=== PATIENT | female | born 1985 | race Caucasian/White ===

== ENCOUNTER 2020-08-28 16:36 | Outpatient (REF) | payer OTHER, SELFPAY | END 2020-08-28 16:37 | disposition home or self-care (01) | LOC: HO.LNP 16:36 | PROVIDERS: Visit Provider Internal Medicine | DX: Z20.828 Contact with and (suspected) exposure to other viral communicable diseases (principal); R68.89 Other general symptoms and signs | CPT/HCPCS: U0003 ==

== ENCOUNTER 2021-10-29 15:14 | Outpatient (REF) | payer OTHER, SELFPAY ==
[2021-10-29 15:59] LABS: COVID-19 Test Negative (Negative); IDNOW Serial# 9DD0AD1C
== END 2021-10-29 15:15 | disposition home or self-care (01) ==
LOC: HO.LNP 15:14
PROVIDERS: Visit Provider Internal Medicine
DX: R09.89 Other specified symptoms and signs involving the circulatory and respiratory systems (principal); Z20.822 Contact with and (suspected) exposure to COVID-19
CPT/HCPCS: 87635

== ENCOUNTER 2022-09-30 16:01 | Outpatient (REF) | payer OTHER, SELFPAY ==
[2022-09-30 16:44] LABS: Influenza A PCR NEGATIVE (Negative); Influenza B PCR NEGATIVE (Negative); Resp Syncy Virus RNA Qual PCR NEGATIVE (Negative); SARS COV2 PCR INHOUSE NEGATIVE (Negative)
== END 2022-09-30 16:02 | disposition home or self-care (01) ==
LOC: HO.LNP 16:01
PROVIDERS: Visit Provider Internal Medicine
DX: Z20.822 Contact with and (suspected) exposure to COVID-19 (principal); R53.83 Other fatigue
CPT/HCPCS: 0241U

== ENCOUNTER 2023-01-09 10:56 | Outpatient (REF) | payer OTHER, SELFPAY ==
[2023-01-09 13:21] LABS: MANUAL DIFF FLAG NO
[2023-01-09 13:30] LABS: Basophils Percent Auto 0.5 % (0-2); Eosinophils Absolute Auto 0.1 X10*3/uL (0.0-0.4); Eosinophils Percent Auto 1.5 % (0-4); Hematocrit 43.6 % (37.0-47.0); Hemoglobin 14.3 g/dl (12.0-16.0); Imm Gran Abs Auto 0.02 X10*3/uL (0.00-0.03); Imm Gran Pct Auto 0.3 % (0.0-0.4); Lymphocytes Absolute Auto 1.8 X10*3/uL (1.2-4.9); Mean Corpuscular HGB Conc 32.8 g/dl (31.0-35.0); Mean Corpuscular Hemoglobin 30.7 pg (27.0-33.0); Mean Corpuscular Volume 93.6 fL (80.0-98.0); Mean Platelet Volume 9.7 fL (9.4-12.3); Monocytes Absolute Auto 0.4 X10*3/uL (0.1-1.2); Monocytes Percent Auto 5.6 % (2-11); Neutrophils Absolute Auto 5.5 x10*3/uL (2.0-8.3); Neutrophils Percent Auto 69.1 % (45-73); Platelet Count 368 X10*3/uL (160-400); Red Blood Count 4.66 X10*6/uL (4.20-5.50); Red Cell Distribution Width 12.6 % (11.0-16.0); White Blood Count 7.9 X10*3/uL (4.8-10.8)
[2023-01-09 14:15] LABS: Alanine Aminotransferase 15 U/L (0-31); Albumin Level 4.2 g/dL (3.5-5.0); Alkaline Phosphatase 58 U/L (39-117); Anion Gap 13 (12-20); Aspartate Amino Transferase 15 U/L (5-31); Bilirubin Total 0.3 mg/dL (0.0-1.0); Blood Urea Nitrogen 10 mg/dL (9-16); C Reactive Protein < 0.10 mg/dL (< or = 0.50); Calcium 9.2 mg/dL (8.4-10.2); Carbon Dioxide 24 mmol/L (22-29); Chloride 107 mmol/L (96-108); Estimated Glomerular Filt Rate > 60; Glucose Random 95 mg/dL (60-115); Potassium 4.6 mmol/L (3.3-5.1); Sodium 139 mmol/L (135-145); Total Protein 6.8 g/dL (6.5-8.0)
[2023-01-09 14:40] LABS: Thyroid Stimulating Hormone 1.22 uIU/mL (0.32-4.0); Vitamin B12 387 pg/mL (200-900)
== END 2023-01-09 10:57 | disposition home or self-care (01) ==
LOC: HO.10HDL 10:56
PROVIDERS: Visit Provider Internal Medicine
DX: R10.9 Unspecified abdominal pain (principal); R11.2 Nausea with vomiting, unspecified; R19.7 Diarrhea, unspecified; R53.83 Other fatigue
CPT/HCPCS: 36415; 80053; 82607; 84443; 85025; 86140

== ENCOUNTER 2023-01-22 08:24 | Outpatient (REF) | payer OTHER, SELFPAY ==
--- NOTE | ~2023-01-22 | US_ITS ---
EXAMINATION: US ABDOMEN COMPLETE CLINICAL INFORMATION: Abdominal pain. COMPARISON: None available. TECHNIQUE: Real-time imaging of the abdominal viscera. FINDINGS: PANCREAS: Normal. ABDOMINAL AORTA: The proximal, mid, and distal segments are normal in caliber. INFERIOR VENA CAVA: Visualized portions are normal. LIVER: Normal. The liver is normal in size. The liver contour is normal. Parenchymal echogenicity is normal. No focal hepatic lesion. There is no intrahepatic biliary duct dilatation seen. GALLBLADDER: The gallbladder is physiologically distended. There is echogenic mobile gravel visualized. No evidence of gallbladder wall thickening or pericholecystic fluid. Gallbladder wall thickness measures 0.17 cm. COMMON BILE DUCT: Normal in caliber measuring 0.4 cm in diameter. RIGHT KIDNEY: Normal. No hydronephrosis. No renal calculi or focal parenchymal lesions. The kidney measures 11.0 cm in maximum dimension. LEFT KIDNEY: There is an anechoic cyst midpole measuring 1.3 x 1.3 x 1.4 cm. There is mild pelvic caliectasis. No hydronephrosis or renal calculi. The kidney measures 10.1 cm in maximum dimension. SPLEEN: Normal. The spleen measures 9.6 cm in maximum dimension. FREE FLUID: None. US/US abdomen complete IMPRESSION: 1. There is an anechoic cyst midpole left kidney measuring 1.4 cm. 2. There is mild pelvic caliectasis left kidney. 3. Echogenic mobile gravel in the dependent portion of the gallbladder. No wall thickening.
== END 2023-01-22 08:25 | disposition home or self-care (01) ==
LOC: HO.HMGCX 08:24
PROVIDERS: PCP Internal Medicine; Visit Provider Internal Medicine
DX: R10.9 Unspecified abdominal pain (principal)
CPT/HCPCS: 76700

== ENCOUNTER → 2023-02-07 08:52 | Outpatient (BNVA) | payer OTHER, SELFPAY | PROVIDERS: PCP Internal Medicine; Referring Provider Internal Medicine; Visit Provider Surgery | DX: Z13.89 Encounter for screening for other disorder (principal) ==

== ENCOUNTER → 2023-02-21 13:13 | Outpatient (BNVA) | payer OTHER, SELFPAY | PROVIDERS: PCP Internal Medicine; Visit Provider Surgery ==

== ENCOUNTER 2023-03-20 06:00 | Day surgery (SDC) | payer OTHER, SELFPAY ==
--- NOTE | 2023-03-19 12:39 | HO.ANESPROP2 ---
Documented by User: Sylvia Augustine NP 03/19/23 12:40 HPI - Anesthesia Eval Consult details Narrative: 37yo F for Cholecystectomy Laparoscopic, Poss open PMFSH Active Problems Active Problems: All Active Problems (Updated 02/07/23 @ 09:44 by Waqar Longo MD) Cholelithiasis (Acute) Biliary colic (Acute) Cigarette smoker motivated to quit (Acute) Past Medical History Medical History Smoker Surgical History Surgical History (Updated 03/14/23 @ 11:20 by Nadia Palumbo RN) No pertinent past surgical history Social History Social History Alcohol intake: current Patient Tobacco Use Status: Former Tobacco user Quit Date: 03/03/23 Cigarettes Per Day: 5 Years Smoked: 15 Use of substances other than those prescribed or required for medical reasons: Yes Are you DNR?: No Advance Directives: No Advance Directives Information Provided: Yes Meds Allergies Allergy/AdvReac Type Severity Reaction Status Date / Time sulfamethoxazole Allergy hives Verified 02/21/23 13:16 Active Medications: Current Medications Lactated Ringer's (Lr) 1,000 mls @ 100 mls/hr IVCONT .Q10H [facility] Home Medications Medication Instructions Recorded Confirmed Last Taken Type bupropion HCl 150 mg tablet,12 hr 150 mg PO DAILY 02/07/23 03/13/23 Unknown History sustained-release (Wellbutrin SR) cholecalciferol (vitamin D3) 125 125 mcg PO DAILY 02/07/23 03/13/23 Unknown History mcg (5,000 unit) capsule lorazepam 0.5 mg tablet 0.5 mg PO DAILY PRN as directed 02/07/23 03/13/23 03/20/23 History varenicline 1 mg tablet 1 mg PO BID 03/13/23 03/13/23 Unknown History Exam Exam Date and Time: March 19, 2023 1239 Pertinent Lab Results Pertinent Lab Results: Laboratory Tests 01/09/23 01/09/23 11:02 11:02 WBC 7.9 Hgb 14.3 Hct 43.6 Plt Count 368 Sodium 139 Potassium 4.6 Chloride 107 Carbon Dioxide 24 BUN 10 Creatinine 0.70 Assessment and Plan Assessment Anesthesia Assessment: Chart Reviewed Documented by User: Jaja Cartwright MD 03/20/23 08:29 [facility] Past Medical History Medical History Smoker Family History Family history of problems with anesthesia: No Surgical History Surgical History (Updated 03/14/23 @ 11:20 by Nadia Palumbo RN) No pertinent past surgical history History of Problems with Anesthesia: No Social History Social History Alcohol intake: current Patient Tobacco Use Status: Former Tobacco user Quit Date: 03/03/23 Cigarettes Per Day: 5 Years Smoked: 15 Use of substances other than those prescribed or required for medical reasons: Yes Are you DNR?: No Advance Directives: No Advance Directives Information Provided: Yes Meds Allergies Allergy/AdvReac Type Severity Reaction Status Date / Time sulfamethoxazole Allergy hives Verified 02/21/23 13:16 Home Medications Medication Instructions Recorded Confirmed Last Taken Type bupropion HCl 150 mg tablet,12 hr 150 mg PO DAILY 02/07/23 03/13/23 Unknown History sustained-release (Wellbutrin SR) cholecalciferol (vitamin D3) 125 125 mcg PO DAILY 02/07/23 03/13/23 Unknown History mcg (5,000 unit) capsule lorazepam 0.5 mg tablet 0.5 mg PO DAILY PRN as directed 02/07/23 03/13/23 03/20/23 History varenicline 1 mg tablet 1 mg PO BID 03/13/23 03/13/23 Unknown History Exam Airway Mallampati Class: I TM Dist: >3cm Neck ROM: Full Loose/Missing/Broken Teeth: No Heart: rr Lungs: cta Assessment and Plan Assessment Anesthesia Assessment: Anesthesia Plan Discussed and Smoking Cess. Discussed Final Anesthetic Review Family History of Problems with Anesthesia: No History of Problems with Anesthesia: No NPO: Yes ASA Class: II Final Preanesthetic Review: No Changes in Pt Med Stat, Meds/Allgs Chart Reviewed, Consent Obtained/Reviewed and Anes Risks/Benef Reviewed Patient Risk: Low Procedure Risk: Intermediate Anesthetic Plan Anesthetic Plan: GA Disposition: Standard PACU
--- NOTE | 2023-03-19 14:18 | MHC.SHP ---
Pre-Procedural Eval Section A Date of Service: 03/19/23 The patient is an INPATIENT: No The History & Physical has been completed within 30 days and I have reviewed it.: Yes Section B Chief Complaint: Calculus of bile duct,Calculus of gallbladder Allergies: Allergies Allergy/AdvReac Type Severity Reaction Status Date / Time sulfamethoxazole Allergy hives Verified 02/21/23 13:16 Plan I have reviewed the history and physical and performed a pertinent physical examination on my patient. No changes have occurred unless specified. Time Spent With Patient Time: Total time managing care of this patient today ____ minutes.
[2023-03-20] VITALS (9 sets, daily range): BP systolic 120–142; BP diastolic 70–86; PULSE 55–86; RESP 12–20; TEMP 36.5–36.7; O2SAT 97–100; BMI 28.3
[2023-03-20 06:24] LABS: UPreg QC Valid YES; Urine Pregnancy NEGATIVE (NEGATIVE)
[2023-03-20] MEDS: Lactated Ringers 1,000 ML 100 ML IVCONT (06:37)
--- NOTE | 2023-03-20 07:02 | P.OP_ITS ---
Operative Note Operative Note Date of Service: 03/20/23 Narrative: Preop diagnosis: [Biliary colic, CCC] Postop diagnosis: [Same] Procedure: [Laparoscopic cholecystectomy] Surgeon: Waqar Longo MD Assist: [Abbi Gonzales RN] Anesthesia: [GET, Marcaine, 0.5% with epi] Estimated blood loss: [3cc] Specimen: [Gallbladder with contents] Intraoperative findings: [4-5 mm cystic duct; 2-3 mm cystic artery. Critical view of safety demonstrated. Incidentally, the patient's fascia is rather attenuated.] Indications: [The patient is a 37-year-old woman who is been experiencing typical symptoms of biliary colic and ultrasound confirmed cholelithiasis. Options including continued dietary attempts to avoid biliary colic was discussed with the patient as well as the option of a 2nd opinion but the patient had progression of her symptoms in spite of dietary changes, so I recomm ended laparoscopic cholecystectomy and the patient wanted to proceed. The inherent risks of the procedure include, but are not limited to: Bleeding that could require another operation or blood transfusion, the need for open surgery, the unlikely but possible issue of bile leak that could require an ERCP, the risk of retained common duct stones that could require an ERCP, the risk of common bile duct injury which would require transfer to a larger institution for another operation. Activity restrictions and dietary modifications to prevent diarrhea were also reviewed and apparently understood. Patient seemed to understand her options, declined a double needle operator or 2nd opinion and wants to proceed. Procedure: The patient was identified in preoperative holding and again in the operating room and placed supine on the table. An appropriate time-out was performed and preemptive local used at all trocar insertion sites. I began at the patient's supraumbilical midline and placed a Veress needle through a stab incision. An appropriate drop test was performed. The needle was connected to high flow and opening pressures were 5 mmHg. A pneumoperitoneum of 15 mmHg was then obtained using carbon dioxide and I accessed the patient's abdomen through the right side of the abdomen in the anterior axillary line at the level of the umbilicus using a 5 mm Optiview trocar and 30 degree/5 mm laparoscopic without incident. Next a a 5 mm epigastric and 5 mm right subcostal port were placed with preemptive analgesia under direct laparoscopic vision and limited lysis of adhesions adding about 5 minutes to the case was performed to dissect omentum from the umbilical area to allow placement of a 12 mm trocar. The gallbladder was clearly identified and grasped by its fundus. It was retracted cranially and anteriorly and dissection began in the cystic triangle. The cystic duct was identified at its junction on the gallbladder and dissection began laterally, then circumferentially dissected using the [place] dissector and hook. The cystic artery was then carefully identified and circumferentially dissected. Once dissection of both structures was complete and the critical view of safety demonstrated, the duct and artery were double clipped proximally and once distally and sharply divided. Electrocautery was used to remove the gallbladder from its fossa on the liver. Liver bed was inspected for hemostasis and the clips were noted to be on the respective structures. The gallbladder was placed in an Endo-Catch bag and delivered through the umbilicus under direct laparoscopic vision. The abdomen was again inspected with the laparoscoped and a abdomen deflated to assess for hemostasis. The patient was returned to neutral position, the abdomen deflated and the fascia of the supraumbilical incision closed with interrupted Vicryl sutures. Skin was closed with 4-0 Monocryl subcuticular sutures. Mastisol and Steri-Strips were applied followed by Band-Aids. The patient tolerated the procedure well and was extubated recovered in stable condition. All sponge instrument counts were correct. At the patient's request I called her Onofre at [phone] and apprised him of the operation and postop plan, pain management and bowel regime. His questions seemed to be satisfactorily answered.]
[2023-03-20] MEDS: oxyCODONE HCl Immed Release 5 MG TABLET PO (09:26)
[2023-03-20] MEDS: fentaNYL citrate/PF 100 MCG/2 ML VIAL 50 MCG IVPUSH (09:50)
== END 2023-03-20 10:42 | disposition home or self-care (01) ==
LOC: HO.SSS 06:00
PROVIDERS: Nurse Practitioner; PCP Internal Medicine; Visit Provider Surgery
PROC: 0FT44ZZ Resection of Gallbladder, Percutaneous Endoscopic Approach (ICD-10-PCS; CPT 47562; principal; 2023-03-20 07:30)
DX: K80.10 Calculus of gallbladder with chronic cholecystitis without obstruction (principal); K82.8 Other specified diseases of gallbladder; K80.50 Calculus of bile duct without cholangitis or cholecystitis without obstruction; Z79.899 Other long term (current) drug therapy; Z88.2 Allergy status to sulfonamides; F17.210 Nicotine dependence, cigarettes, uncomplicated
CPT/HCPCS: 47562; 81025; 88304; J0690; J2250; J3010

== ENCOUNTER → 2023-03-28 10:14 | Outpatient (BNVA) | payer OTHER, SELFPAY | PROVIDERS: PCP Internal Medicine; Visit Provider Surgery ==

== ENCOUNTER 2023-08-14 11:16 | Outpatient (REF) | payer OTHER, SELFPAY ==
[2023-08-14 13:13] LABS: MANUAL DIFF FLAG NO
[2023-08-14 13:15] LABS: Basophils Absolute Auto 0.1 X10*3/uL (0.0-0.2); Basophils Percent Auto 0.7 % (0-2); Eosinophils Absolute Auto 0.1 X10*3/uL (0.0-0.4); Eosinophils Percent Auto 0.8 % (0-4); Hematocrit 43.1 % (37.0-47.0); Hemoglobin 14.5 g/dl (12.0-16.0); Imm Gran Abs Auto 0.03 X10*3/uL (0.00-0.03); Imm Gran Pct Auto 0.3 % (0.0-0.4); Lymphocytes Absolute Auto 2.6 X10*3/uL (1.2-4.9); Mean Corpuscular HGB Conc 33.6 g/dl (31.0-35.0); Mean Corpuscular Hemoglobin 31.6 pg (27.0-33.0); Mean Corpuscular Volume 93.9 fL (80.0-98.0); Mean Platelet Volume 9.3 fL (9.4-12.3); Monocytes Absolute Auto 0.7 X10*3/uL (0.1-1.2); Monocytes Percent Auto 5.6 % (2-11); Neutrophils Absolute Auto 8.4 x10*3/uL (2.0-8.3); Neutrophils Percent Auto 70.6 % (45-73); Platelet Count 400 X10*3/uL (160-400); Red Blood Count 4.59 X10*6/uL (4.20-5.50); Red Cell Distribution Width 12.5 % (11.0-16.0)
[2023-08-14 13:30] LABS: Alanine Aminotransferase 14 U/L (0-31); Albumin Level 4.7 g/dL (3.5-5.0); Alkaline Phosphatase 56 U/L (39-117); Anion Gap 13 (12-20); Aspartate Amino Transferase 15 U/L (5-31); Bilirubin Total 0.4 mg/dL (0.0-1.0); Blood Urea Nitrogen 8 mg/dL (9-16); C Reactive Protein < 0.10 mg/dL (< or = 0.50); Calcium 9.6 mg/dL (8.4-10.2); Carbon Dioxide 23 mmol/L (22-29); Chloride 105 mmol/L (96-108); Estimated Glomerular Filt Rate > 60; Glucose Random 96 mg/dL (60-115); Lipase 19 U/L (8-78); Potassium 4.1 mmol/L (3.3-5.1); Sodium 137 mmol/L (135-145); Total Protein 7.7 g/dL (6.5-8.0)
== END 2023-08-14 11:17 | disposition home or self-care (01) ==
LOC: HO.10HDL 11:16
PROVIDERS: Visit Provider Internal Medicine
DX: R10.9 Unspecified abdominal pain (principal); Z98.890 Other specified postprocedural states
CPT/HCPCS: 36415; 80053; 82550; 83690; 85025; 86140

== ENCOUNTER 2023-08-18 10:18 | Outpatient (REF) | payer OTHER, SELFPAY ==
--- NOTE | ~2023-08-18 | CT_ITS ---
EXAMINATION: CT ABDOMEN AND PELVIS WITHOUT CONTRAST CLINICAL INFORMATION: Abdominal pain COMPARISON: Ultrasound abdomen from 01/22/2023 TECHNIQUE: Multidetector volumetric imaging was performed from the superior aspect of the liver through the pubic symphysis. Sagittal and coronal reformatted images were obtained on the technologist's workstation. This CT examination was performed using dose optimization techniques as appropriate, variously including the following: *Automated exposure control *Adjustment of mA and/or kV according to patient size (this includes techniques or standardized protocols for targeted exams where dose is matched to indication/reason for exam; i.e. extremities or head) *Use of iterative reconstruction technique DLP: 419 mGy-cm FINDINGS: LUNG BASES: The visualized lung bases are unremarkable. LIVER, GALLBLADDER, AND BILIARY TREE: The liver is normal in size, shape, and attenuation. No focal hepatic lesion or biliary ductal dilatation is present. The gallbladder is surgically absent. PANCREAS: Unremarkable. SPLEEN: Unremarkable. ADRENAL GLANDS: Unremarkable. KIDNEYS AND URETERS: Redemonstration of exophytic cystic focus in the left renal interpolar region measuring up to 1.2 cm, not requiring follow-up. The kidneys are normal in size, shape, and attenuation. No hydronephrosis, hydroureter, or calculi seen. No perinephric stranding. BLADDER: Unremarkable. GASTROINTESTINAL TRACT: The small and large bowel are unremarkable. The appendix is unremarkable. ABDOMINAL WALL: Fat filled umbilical hernia. LYMPH NODES: Normal. VASCULAR: Unremarkable. PELVIC VISCERA: Anteverted uterus. Bilateral adnexal/ovarian hypodense foci the largest in the left side measuring up to 2.0 cm. Findings are overwhelmingly likely to represent a normal ovarian follicle. No follow-up imaging recommended. OSSEOUS STRUCTURES: Unremarkable. CT/CT abdomen pelvis wo IV con IMPRESSION: 1. No acute pathology involving the abdomen or pelvis. 2. Bilateral adnexal/ovarian hypodense foci the largest in the left side measuring up to 2.0 cm. Findings are overwhelmingly likely to represent a normal ovarian follicle. No follow-up imaging recommended. 3. Status post cholecystectomy. 4. Redemonstration of exophytic cystic focus in the left renal interpolar region measuring up to 1.2 cm, not requiring follow-up. 5. Fat filled umbilical hernia.
== END 2023-08-18 10:19 | disposition home or self-care (01) ==
LOC: HO.CT 10:18
PROVIDERS: PCP Internal Medicine; Visit Provider Internal Medicine
DX: R10.84 Generalized abdominal pain (principal)
CPT/HCPCS: 74176

== ENCOUNTER 2023-09-09 08:27 | Outpatient (AMB) | payer OTHER, SELFPAY ==
--- NOTE | 2023-09-09 08:29 | A.OFFVIS_ITS ---
Intake Vital Signs 09/09/23 08:33 Height 5 ft 4 in Weight 153 lb 0.013 oz BMI 26.3 BP 138/71 Blood Pressure Location Rt brachial Position Sitting Pulse 96 Pulse Source Pulse Oximeter Temp 95.7 F L Temp Source Tympanic Pulse Oximetry (%) 99 Oxygen Delivery Method Room Air Intake Visit Reasons: ABD HERNIA Allergies sulfamethoxazole Allergy (Verified 03/28/23 10:31) hives HPI HPI Comments History of Present Illness Details The pt is known to me for laparoscopic cholecystectomy for biliary colic 03/20/23. She was last seen 03/28/2023 and was doing well. In the interim, the patient notes that she has had continued mid upper abdominal/left-sided abdominal complaints since surgery. She contacted her PCP who ordered a CT of the abdomen and pelvis and a tiny umbilical hernia containing fat, no bowel was noted. She otherwise denies interval change to her medications. The patient notes that she is stopped Wellbutrin, is continuing to smoke and that she is exhausted and wiped out. FORMERLY [facility], [facility] Medical History Smoker Surgical History History of laparoscopic cholecystectomy (03/20/23) Social History Alcohol intake: current Patient Tobacco Use Status: Former Tobacco user Quit Date: 03/03/23 Cigarettes Per Day: 5 Years Smoked: 15 Physical Exam On exam, patient is nontoxic She is anicteric Abdomen is soft. She reports left paramedian/ventral pain. There is no obvious umbilical hernia on exam and to palpation today, there was no umbilical tenderness, but rather left rectus pain above the level of the umbilicus. Her lap cholecystectomy scars are well healed with no tenderness and no obvious hernia. Results Reviewed Results Reviewed: 2. Bilateral adnexal/ovarian hypodense foci the largest in the left side measuring up to 2.0 cm. Findings are overwhelmingly likely to represent a normal ovarian follicle. No follow-up imaging recommended. I reviewed the images and report and concur that there is a bland, tiny umbilical hernia containing fat with no stigmata of inflammation to explain the patient's ongoing symptoms Assessment & Plan Assessment & Plan (1) Umbilical hernia: Code(s): K42.9 - Umbilical hernia without obstruction or gangrene Plan: The patient is describing global exhaustion and symptoms not typically related to hernia. On today's exam, her pain is not at her umbilicus but in the left rectus/ventral area. Explained to her that we may need to consider repair if no other etiology for her chronic abdominal and exhaustion/fatigue complaints are found, but I am skeptical she will benefit from repair. (2) Abdominal pain: Code(s): R10.9 - Unspecified abdominal pain Plan: Patient may benefit from evaluation from electronics technology instructor regarding the ovarian cysts seen on CT. Plan Will see the patient back in 3 months for re-evaluation. Patient will contact her PCP for referrals regarding electronics technology instructor or possible GI to exclude other possibilities given this tiny umbilical hernia that was not tender on today's exam. Coding Level of Care Code Est Pt Level 4 (85870) Diagnoses Umbilical hernia K42.9 Abdominal pain R10.9
[2023-09-09 08:33] VITALS: BP 138/71; PULSE 96; TEMP 35.4; O2SAT 99; BMI 26.3
== END 2023-09-09 08:44 | disposition home or self-care (01) ==
PROVIDERS: PCP Internal Medicine; Visit Provider Surgery
DX: K42.9 Umbilical hernia without obstruction or gangrene (principal); R10.9 Unspecified abdominal pain
CPT/HCPCS: 99214

== ENCOUNTER → 2023-09-09 08:27 | Outpatient (BNVA) | payer OTHER, SELFPAY | PROVIDERS: PCP Internal Medicine; Visit Provider Surgery ==

== ENCOUNTER 2023-09-26 13:50 | Outpatient (REF) | payer OTHER, SELFPAY ==
[2023-09-26 14:41] LABS: Influenza A PCR NEGATIVE (Negative); Influenza B PCR NEGATIVE (Negative); Resp Syncy Virus RNA Qual PCR NEGATIVE (Negative); SARS COV2 PCR INHOUSE NEGATIVE (Negative)
== END 2023-09-26 13:51 | disposition home or self-care (01) ==
LOC: HO.LNP 13:50
PROVIDERS: Visit Provider Internal Medicine
DX: Z11.52 Encounter for screening for COVID-19 (principal); Z20.822 Contact with and (suspected) exposure to COVID-19; R05.9 Cough, unspecified; R51.9 Headache, unspecified
CPT/HCPCS: 0241U

== ENCOUNTER 2023-11-05 10:00 | Outpatient (REF) | payer OTHER, SELFPAY ==
[2023-11-05 10:55] LABS: Influenza A PCR POSITIVE (Negative); Influenza B PCR NEGATIVE (Negative); Resp Syncy Virus RNA Qual PCR NEGATIVE (Negative); SARS COV2 PCR INHOUSE NEGATIVE (Negative)
== END 2023-11-05 10:01 | disposition home or self-care (01) ==
LOC: HO.LNP 10:00
PROVIDERS: Visit Provider Internal Medicine
DX: Z11.52 Encounter for screening for COVID-19 (principal); Z20.822 Contact with and (suspected) exposure to COVID-19; R05.9 Cough, unspecified; R51.9 Headache, unspecified
CPT/HCPCS: 0241U

== ENCOUNTER 2023-11-27 09:36 | Outpatient (REF) | payer OTHER, SELFPAY ==
[2023-11-27 09:59] LABS: MANUAL DIFF FLAG NO
[2023-11-27 10:46] LABS: Basophils Absolute Auto 0.1 X10*3/uL (0.0-0.2); Basophils Percent Auto 0.6 % (0-2); Eosinophils Absolute Auto 0.1 X10*3/uL (0.0-0.4); Eosinophils Percent Auto 1.3 % (0-4); Hemoglobin 15.2 g/dl (12.0-16.0); Imm Gran Abs Auto 0.04 X10*3/uL (0.00-0.03); Imm Gran Pct Auto 0.5 % (0.0-0.4); Lymphocytes Absolute Auto 1.9 X10*3/uL (1.2-4.9); Mean Corpuscular HGB Conc 33.8 g/dl (31.0-35.0); Mean Corpuscular Hemoglobin 31.1 pg (27.0-33.0); Mean Platelet Volume 9.6 fL (9.4-12.3); Monocytes Absolute Auto 0.5 X10*3/uL (0.1-1.2); Monocytes Percent Auto 6.2 % (2-11); Neutrophils Absolute Auto 5.6 x10*3/uL (2.0-8.3); Neutrophils Percent Auto 68.4 % (45-73); Platelet Count 354 X10*3/uL (160-400); Red Blood Count 4.89 X10*6/uL (4.20-5.50); Red Cell Distribution Width 13.1 % (11.0-16.0); White Blood Count 8.2 X10*3/uL (4.8-10.8)
[2023-11-27 10:55] LABS: Appearance Urine Cloudy; Color Urine Dark Yellow; Glucose Urine UA Negative (Negative); Leukocyte Esterase Urine Trace (Negative); Nitrite Urine Negative (Negative); Specific Gravity - Urine 1.025 (1.005-1.025); UMIC TRIGGER UACC YES; Urine Blood Moderate (2+) (Negative); Urine Ketones Trace mg/dL (Negative); Urine Protein Trace mg/dL (Neg-Trace)
[2023-11-27 11:08] LABS: Bacteria Urine 3+ (None Seen); WBC Urine 0-5 /HPF (0-5)
[2023-11-27 11:30] LABS: Alanine Aminotransferase 12 U/L (0-31); Albumin Level 4.5 g/dL (3.5-5.0); Alkaline Phosphatase 63 U/L (39-117); Anion Gap 14 (12-20); Aspartate Amino Transferase 14 U/L (5-31); Bilirubin Total 0.7 mg/dL (0.0-1.0); Blood Urea Nitrogen 8 mg/dL (9-16); C Reactive Protein < 0.10 mg/dL (< or = 0.50); Calcium 9.6 mg/dL (8.4-10.2); Carbon Dioxide 22 mmol/L (22-29); Chloride 105 mmol/L (96-108); Estimated Glomerular Filt Rate > 60; Glucose Random 94 mg/dL (60-115); Lipase 15 U/L (8-78); Potassium 3.5 mmol/L (3.3-5.1); Sodium 137 mmol/L (135-145); Total Protein 7.6 g/dL (6.5-8.0)
[2023-11-27 11:35] LABS: Free T4 (Free Thyroxine) 1.09 ng/dL (0.71-1.85); Thyroid Stimulating Hormone 0.97 uIU/mL (0.32-4.0)
[2023-11-27 11:39] LABS: Vitamin B12 436 pg/mL (200-900)
== END 2023-11-27 09:37 | disposition home or self-care (01) ==
LOC: HO.LAB 09:36
PROVIDERS: PCP Internal Medicine; Visit Provider Internal Medicine
DX: R10.9 Unspecified abdominal pain (principal); Z98.890 Other specified postprocedural states
CPT/HCPCS: 36415; 80053; 81001; 82550; 82607; 83690; 84439; 84443; 85025; 86140; 87086

== ENCOUNTER 2024-02-19 16:21 | Outpatient (REF) | payer OTHER, SELFPAY ==
[2024-02-19 17:29] LABS: Influenza A PCR NEGATIVE (Negative); Influenza B PCR NEGATIVE (Negative); Resp Syncy Virus RNA Qual PCR NEGATIVE (Negative); SARS COV2 PCR INHOUSE NEGATIVE (Negative)
== END 2024-02-19 16:22 | disposition home or self-care (01) ==
LOC: HO.LNP 16:21
PROVIDERS: Visit Provider Internal Medicine
DX: R06.02 Shortness of breath (principal); J02.9 Acute pharyngitis, unspecified
CPT/HCPCS: 0241U

== ENCOUNTER 2025-02-09 09:31 | Outpatient (AMB) | payer OTHER, SELFPAY ==
--- NOTE | 2025-02-09 09:35 | A.OFFPC_ITS ---
Vital Signs 02/09/25 09:36 Height 5 ft 4 in Weight 140 lb BMI 24.0 BP 122/70 Blood Pressure Location Lt brachial Position Sitting Pulse 86 Pulse Source Pulse Oximeter Temp 97.6 F Temp Source Axillary Pulse Oximetry (%) 98 Oxygen Delivery Method Room Air Intake Visit Reasons: Routine Med review Installation Service Representative Required: No Accompanied by: Self / Same As Patient Allergies sulfamethoxazole Allergy (Verified 02/09/25 09:37) hives Tobacco use date assessed: 02/09/25 Dental Screening Dental Screen Date: 02/09/25 Did you have a dental visit in the last 12 months?: Yes Did you have a dental problem in the last 6 months where you did not have access to dental care?: No PFSH Medical History Tobacco use disorder Generalized anxiety disorder Smoker Surgical History History of laparoscopic cholecystectomy (03/20/23) Family History (Updated 02/09/25 @ 09:44 by Candi Chen MA) Mother No problems noted. Father No problems noted. Social History Housing: House Alcohol intake: current Patient Tobacco Use Status: Current everyday Tobacco user Cigarettes Per Day: 5 Years Smoked: 15 e-Cigarette/Vaping Use: Currently Using service: No Current occupational status: employed Cognitive needs: No Hearing needs: No Vision needs: Yes (rx glasses) Questionnaire PHQ-9 Over the last 2 weeks, how often have you been bothered by any of the following problems? 1. Little interest or pleasure in doing things: not at all 2. Feeling down, depressed, or hopeless: several days 3. Trouble falling or staying asleep, or sleeping too much: several days 4. Feeling tired or having little energy: several days 5. Poor appetite or overeating: several days 6. Feeling bad about yourself - or that you are a failure or have let yourself or your family down: not at all 7. Trouble concentrating on things, such as reading the newspaper or watching television: not at all 8. Moving or speaking so slowly that other people could have noticed. Or the opposite - being so fidgety or restless that you have been moving around a lot more than usual: not at all 9. Thoughts that you would be better off or of hurting yourself in some way: not at all Total score: 4 Depression Screening Interpretation: Positive Depression Screening Follow-up: Existing condition and In treatment Depression Screening Done: Yes Source: Developed by Drs. Avtar Butterfield, Maru Weiss, Holland Mcgrath and colleagues, with an educational kim from [employer]. Thrive Questionnaire Date Thrive assessed: 02/09/25 I am a: Patient Within the past 12 months, did the food you bought not last and you didn't have the money to get more?: Never true Within the past 12 months, did you worry whether your food would run out before you got money to buy more?: Never true Do you have trouble paying for medicines?: No Do you have trouble getting transportation to medical appointments?: No Do you have trouble paying your heating and electricity bill?: No Do you have trouble taking care of your child, family member or friend?: No Do you have trouble with day-to-day activities such as bathing, preparing meals, shopping, managing finances, etc.?: No Are you currently unemployed and looking for a job?: No Are you interested in more education?: No Currently or been in a relationship where the following occur: No concerns reported THRIVE Score: 0 AUDIT C Alcohol Use Questionnaire (AUDIT-C) 1. How often do you have a drink containing alcohol?: Monthly or less 2. How many drinks containing alcohol do you have on a typical day when you are drinking?: 1 or 2 3. How often do you have six or more drinks on one occasion?: Less than monthly Total Score: 2 KARY-7 AMB Questionnaire KARY-7 Date KARY - 7 assessed: 02/09/25 Feeling nervous, anxious, or on edge: 1 = Several days Not being able to stop or control worryin = Not at all Worrying too much about different things: 0 = Not at all Trouble relaxin = Not at all Being so restless that it is hard to sit still: 0 = Not at all Becoming easily annoyed or irritable: 0 = Not at all Feeling afraid as if something awful might happen: 0 = Not at all Total KARY-7 score (0-4 normal; 5-9 mild; 10-14 moderate; 15-21 severe): 1 Source: Developed by Drs. Avtar Butterfield, Maru Weiss, Holland Mcgrath and colleagues, with an educational kim from [employer]. Physical exam (Primary Care) Vital Signs: Last Vital Signs Temp 97.6 F 02/09/25 09:36 Pulse 86 02/09/25 09:36 BP 122/70 02/09/25 09:36 Pulse Ox 98 02/09/25 09:36 Oxygen Delivery Method Room Air 02/09/25 09:36 Care Plan Goal for BP management: BP in range BMI result Body Mass Index 24.0 Tobacco/Smoking Status: Tobacco use Status Tobacco use date assessed 02/09/25 02/09/25 09:45 Patient Tobacco Use Status Current everyday Tobacco 02/09/25 09:45 e-Cigarette/Vaping Use Currently Using 02/09/25 09:45 Are you ready to quit: No Tobacco cessation counseling provided: No PHQ-9: PHQ-9 Score PHQ-9: Total score 4 02/09/25 09:45 Depression Screening Interpretation: Positive Depression Screening Follow-up: Existing condition and In treatment Thrive Assessment: Date of Thrive Assessment Date Thrive assessed 02/09/25 02/09/25 09:45 Currently or been in a relationship where the following occur: No concerns reported Coding Level of Care Code New Pt Level 4 (28638) Complex EM visit Add On G2211 Diagnoses Biliary colic K80.50 Generalized anxiety disorder F41.1 Assessment & Plan Assessment & Plan (1) Biliary colic: Code(s): K80.50 - Calculus of bile duct without cholangitis or cholecystitis without obstruction Category: Medical Plan: Continue intermittent use of Hyoscyamine (2) Generalized anxiety disorder: Code(s): F41.1 - Generalized anxiety disorder Category: Medical Plan: Intermittent use of lorazepam Plan History of Present Illness The patient is a 39-year-old female presenting for a structured six-month medication review and follow-up. She details a history of post-cholecystectomy complications for which she was prescribed hyoscyamine. Although improvement is noted, she still carries the medication for occasional use correlating with meals high in fat content. Concurrently, she has struggled with insomnia and anxiety, particularly during nighttime, for which she resorts to lorazepam as needed. Her history is complicated by multiple miscarriages, a source of ongoing distress in conjunction with her 's unemployment, heightening familial stress. Furthermore, her has type 1 diabetes, adding to existing concerns. The patient indicates occasional smoking, estimated at five cigarettes daily, with an expressed intent to reduce this number. 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 - Family status: with interest in conceiving, despite previous miscarriages. - Substance use: Smokes approximately five cigarettes per day, desires to quit; previous use of Chantix. - Stress factors: Significant familial and employment-related stress, including 's job loss and diabetic management. Review of Systems - Gastrointestinal: Reports improvement in postprandial abdominal pain after gallbladder removal. - Psychiatric: Reports insomnia, anxiety, and significant stress. - Obstetric/Gynecologic: Reports history of multiple miscarriages. - Respiratory: Denies smoking more than five cigarettes per day. Physical Exam General: Cooperative and healthy appearing Nutritional Appearance: Well nourished Orientation/consciousness: Patient oriented x3 Limitations: No limitations Head: Normal to inspection General: Appearance normal, both eyes and all related structures Neck: Normal visual inspection Chest: Normal palpation of entire chest wall Respiratory: Smokes about five cigarettes a day ormal respiratory effort Neurology: Patient oriented x3 Results Plan The plan includes maintaining the current management for post-cholecystectomy symptoms, with hyoscyamine as needed. Lorazepam will continue for insomnia and anxiety, prescribed monthly. Lab tests and a mammogram will be ordered as part of her regular health maintenance. The patient is advised to reduce smoking from five to four cigarettes daily as a starting point for cessation. Patient was informed and verbally consented to the use of an ambient scribe for clinic note documentation during this visit. Discussion Notes During the consultation, I discussed the continuation of her medication regimen, specifically the as-needed use of lorazepam for managing anxiety and insomnia, emphasizing responsible use. I addressed her need for updated lab work and a mammogram, and explained the importance of adherence to preventive screenings. Smoking reduction and eventual cessation strategies were proposed to mitigate risks associated with nicotine use. We agreed on monthly electronic refills for lorazepam to monitor her usage closely. We reviewed the importance of emotional support given her family's current stressors and past challenges with miscarriages. Patient Instructions - Continue using hyoscyamine as needed for post-meal pain. - Take lorazepam only as needed for insomnia or anxiety. - Attend lab and mammogram appointments as ordered. - Aim to reduce cigarette use to four per day. - Inform the office of any changes in symptoms or medication needs. - Follow up after scheduled six months or as needed. Orders: Orders Complete Blood Count no Diff Today F17.200 - Nicotine dependence, unspecified, uncomplicated, F41.1 - Generalized anxiety disorder, K80.50 - Calculus of bile duct without cholangitis or cholecystitis without obstruction Lipid Panel Today F17.200 - Nicotine dependence, unspecified, uncomplicated, F41.1 - Generalized anxiety disorder, K80.50 - Calculus of bile duct without cholangitis or cholecystitis without obstruction UA and rflx microscopic Today F17.200 - Nicotine dependence, unspecified, uncomplicated, F41.1 - Generalized anxiety disorder, K80.50 - Calculus of bile duct without cholangitis or cholecystitis without obstruction MM screening mammo BI Today Z12.31 - Encounter for screening mammogram for malignant neoplasm of breast Basic Metabolic Panel Today F17.200 - Nicotine dependence, unspecified, uncomplicated, F41.1 - Generalized anxiety disorder, K80.50 - Calculus of bile duct without cholangitis or cholecystitis without obstruction Liver Panel Today F17.200 - Nicotine dependence, unspecified, uncomplicated, F41.1 - Generalized anxiety disorder, K80.50 - Calculus of bile duct without cholangitis or cholecystitis without obstruction Thyroid Stimulating Hormone Today F17.200 - Nicotine dependence, unspecified, uncomplicated, F41.1 - Generalized anxiety disorder, K80.50 - Calculus of bile duct without cholangitis or cholecystitis without obstruction Medications: New lorazepam 0.5 mg PO DAILY 30 days 30 tabs 0RF
[2025-02-09 09:36] VITALS: BP 122/70; PULSE 86; TEMP 36.4; O2SAT 98; BMI 24.0
== END 2025-02-09 10:07 | disposition home or self-care (01) ==
LOC: HO.HMCHD 09:31
PROVIDERS: PCP Internal Medicine; Visit Provider Internal Medicine
DX: K80.50 Calculus of bile duct without cholangitis or cholecystitis without obstruction (principal); F41.1 Generalized anxiety disorder

== ENCOUNTER → 2025-02-09 09:31 | Outpatient (BNVA) | payer OTHER, SELFPAY | PROVIDERS: PCP Internal Medicine; Visit Provider Internal Medicine ==

== ENCOUNTER 2025-03-23 13:03 | Outpatient (AMB) | payer OTHER, SELFPAY ==
--- NOTE | 2025-03-23 13:10 | A.OFFPC_ITS ---
Vital Signs 03/23/25 13:12 Height 5 ft 4 in Weight 64.41 kg BMI 24.4 BP 148/76 H Respiration 14 Pulse 72 Pulse Source Pulse Oximeter Temp 98.4 F Temp Source Temporal Artery Scan Pulse Oximetry (%) 99 Oxygen Delivery Method Room Air Intake Visit Reasons: L Shoulder Pain Rehab Spec Required: No Accompanied by: Self / Same As Patient Allergies sulfamethoxazole Allergy (Verified 03/23/25 13:11) hives Tobacco use date assessed: 02/09/25 Dental Screening Dental Screen Date: 02/09/25 HPI HPI Comments History of Present Illness Details 39-year-old female presents to the offic e today for evaluation of left upper back and shoulder pain. She states she was experiencing paresthesias in the left upper back about 3 weeks ago then began panting with bilateral upper extremities on the 14 of March. Since then, she has had sharp pains in the left upper back with occasional paresthesias and radiation into the left upper arm. There is some weakness. Does endorse occasional pruritus but no rash noted. She has been using 400 mg of ibuprofen, Tylenol Arthritis, Salonpas, icy hot and Voltaren gel without relief. She has also been performing [id number] exercises for the last 3 days without relief. She does experience some relief when leaning backwards. No specific known injury. No history of prior symptoms. ROS: General: No fevers, malaise, unintentional weight loss HEENT: No blurred vision, diplopia. No sore throat, nasal congestion, rhinorrhea, sinus pain, ear pain Cardiovascular: No chest pain, palpitations, or leg edema Respiratory: No shortness of breath, wheezing, cough MSK: see hpi Neuro: see hpi Skin: No rashes or lesions EXAM: Constitutional - Awake and Alert, No apparent distress Eyes - PERRLA, EOMI Cardiovascular - S1S2, RRR, No edema Respiratory - Normal lung expansion, Normal respiratory effort, No respiratory distress, CTA bilaterally Extremities - no calf tenderness bilaterally, no swelling Musculoskeletal - NO bony abnormality, full ROM L shoulder and neck. No midline tenderness of the cervical and thoracic spine. TTP of the left sided trapezius muscles with radicular symptoms reproduced with compression of the muscle. Skin - Warm/Dry Neurological - Alert & oriented x3, 4/5 strength LUE, 5/5 strength RUE Psychological - Appropriate affect [facility] Medical History Tobacco use disorder Generalized anxiety disorder Smoker Surgical History History of laparoscopic cholecystectomy (03/20/23) Family History (Updated 02/09/25 @ 09:44 by Candi Chen MA) Mother No problems noted. Father No problems noted. Social History Housing: House Alcohol intake: current Patient Tobacco Use Status: Current everyday Tobacco user Cigarettes Per Day: 5 Years Smoked: 15 e-Cigarette/Vaping Use: Currently Using service: No Current occupational status: employed Cognitive needs: No Hearing needs: No Vision needs: Yes (rx glasses) Questionnaire Thrive Questionnaire Date Thrive assessed: 02/09/25 KARY-7 AMB Questionnaire KARY-7 Date KARY - 7 assessed: 02/09/25 Source: Developed by Drs. Avtar Butterfield, Maru Weiss, Holland Mcgrath and colleagues, with an educational kim from [employer]. Physical exam (Primary Care) Vital Signs: Last Vital Signs Temp 98.4 F 03/23/25 13:12 Pulse 72 03/23/25 13:12 Resp 14 03/23/25 13:12 BP 148/76 H 03/23/25 13:12 Pulse Ox 99 03/23/25 13:12 Oxygen Delivery Method Room Air 03/23/25 13:12 BMI result Body Mass Index 24.4 Tobacco/Smoking Status: Tobacco use Status Tobacco use date assessed 02/09/25 03/23/25 13:14 Patient Tobacco Use Status Current everyday Tobacco 03/23/25 13:14 e-Cigarette/Vaping Use Currently Using 03/23/25 13:14 Thrive Assessment: Date of Thrive Assessment Date Thrive assessed 02/09/25 03/23/25 13:14 Coding Level of Care Code Est Pt Level 3 (01925) Diagnoses Trapezius muscle spasm M62.838 Assessment & Plan Assessment & Plan (1) Trapezius muscle spasm: Code(s): M62.838 - Other muscle spasm Category: Medical Plan: Likely resulting in some nerve compression. Recommend ibuprofen 800mg tid prn as well as robaxin 750mg tid prn. Can continue with heat/ice, Salonpas. She is also given stretches to perform at home and is referred to physical therapy Plan Follow-up for annual physical. PT eval placed. Ibuprofen, Robaxin. Follow-up as needed as well Orders: Orders PT Evaluation and Treatment Today M62.838 - Other muscle spasm Medications: New ibuprofen 800 mg PO Q8H PRN 90 tabs 0RF pain methocarbamol 750 mg PO Q8H 30 tabs 0RF
[2025-03-23 13:12] VITALS: BP 148/76; PULSE 72; RESP 14; TEMP 36.9; O2SAT 99; BMI 24.4
== END 2025-03-23 14:21 | disposition home or self-care (01) ==
LOC: HO.HMCHD 13:03
PROVIDERS: PCP Internal Medicine; Visit Provider Physician Assistant
DX: M62.838 Other muscle spasm (principal)

== ENCOUNTER → 2025-03-23 13:03 | Outpatient (BNVA) | payer OTHER, SELFPAY | PROVIDERS: PCP Internal Medicine; Visit Provider Physician Assistant ==

== ENCOUNTER 2025-04-01 16:14 | Outpatient (REF) | payer OTHER, SELFPAY | END 2025-04-01 16:15 | disposition home or self-care (01) | LOC: HO.MAMMO 16:14 | PROVIDERS: PCP Internal Medicine; Visit Provider Internal Medicine | DX: Z12.31 Encounter for screening mammogram for malignant neoplasm of breast (principal) | CPT/HCPCS: 77063; 77067 ==

== ENCOUNTER → 2025-04-01 16:30 | Outpatient (BNV) | payer OTHER, SELFPAY | PROVIDERS: PCP Internal Medicine; Visit Provider Internal Medicine | DX: Z12.31 Encounter for screening mammogram for malignant neoplasm of breast (principal) | CPT/HCPCS: 77063; 77067 ==

== ENCOUNTER 2025-06-29 09:56 | Outpatient (REF) | payer OTHER, SELFPAY ==
[2025-06-29 13:07] LABS: Appearance Urine Cloudy; Glucose Urine UA Negative (Negative); PH 6.5 (5.0-9.0); Specific Gravity - Urine 1.020 (1.005-1.025); UMIC TRIGGER UA YES
[2025-06-29 13:16] LABS: Hematocrit 44.5 % (37.0-47.0); Hemoglobin 15.0 g/dl (12.0-16.0); Mean Corpuscular HGB Conc 33.7 g/dl (31.0-35.0); Mean Corpuscular Hemoglobin 30.9 pg (27.0-33.0); Mean Corpuscular Volume 91.8 fL (80.0-98.0); NRBC Abs Auto 0.000 X10*3/uL (0.0-0.012); NRBC Pct Auto 0.0 /100WBC (0.0-0.2); Platelet Count 369 X10*3/uL (160-400); Red Blood Count 4.85 X10*6/uL (4.20-5.50); White Blood Count 10.7 X10*3/uL (4.8-10.8)
[2025-06-29 13:32] LABS: Alanine Aminotransferase 12 U/L (0-31); Albumin Level 4.7 g/dL (3.5-5.0); Alkaline Phosphatase 62 U/L (39-117); Anion Gap 15 (12-20); Aspartate Amino Transferase 20 U/L (5-31); Blood Urea Nitrogen 8 mg/dL (9-16); Calcium 8.9 mg/dL (8.4-10.2); Carbon Dioxide 24 mmol/L (22-29); Chloride 103 mmol/L (96-108); Cholesterol 203 mg/dL (<200); Estimated Glomerular Filt Rate > 60; HDL Cholesterol 73 mg/dL (>40); Potassium 4.2 mmol/L (3.3-5.1); Sodium 138 mmol/L (135-145); Total Protein 7.4 g/dL (6.5-8.0); Triglycerides 110 mg/dL (<150)
[2025-06-29 13:52] LABS: Thyroid Stimulating Hormone 0.98 uIU/mL (0.32-4.0)
== END 2025-06-29 09:57 | disposition home or self-care (01) ==
LOC: HO.10HDL 09:56
PROVIDERS: Visit Provider Internal Medicine
DX: Z13.6 Encounter for screening for cardiovascular disorders (principal); K80.50 Calculus of bile duct without cholangitis or cholecystitis without obstruction; F41.1 Generalized anxiety disorder; F17.200 Nicotine dependence, unspecified, uncomplicated
CPT/HCPCS: 36415; 80048; 80061; 80076; 81001; 84443; 85027

== ENCOUNTER 2025-06-29 10:09 | Outpatient (AMB) | payer OTHER, SELFPAY ==
[2025-06-29 08:22] VITALS: BP 128/80; PULSE 83; TEMP 36.8; O2SAT 99; BMI 25.2
--- NOTE | 2025-06-29 08:22 | A.OFFPC_ITS ---
Vital Signs 06/29/25 08:22 Height 5 ft 4 in Weight 147 lb BMI 25.2 BP 128/80 Blood Pressure Location Lt brachial Position Sitting Pulse 83 Pulse Source Pulse Oximeter Temp 98.2 F Temp Source Temporal Artery Scan Pulse Oximetry (%) 99 Oxygen Delivery Method Room Air Intake Visit Reasons: Annual Venetian Blind Maker Required: No Accompanied by: Self / Same As Patient Allergies sulfamethoxazole Allergy (Verified 06/29/25 08:23) hives Medication List - Last Reconciled 06/29/25 by BELEM Naidu biotin mcg PO cetirizine (Zyrtec) 10 mg PO DAILY PRN cholecalciferol (vitamin D3) 125 mcg PO DAILY fluticasone propionate 50 mcg/actuation 1 spray intranasal DAILY hyoscyamine sulfate mg PO lorazepam 0.5 mg PO DAILY PRN multivitamin 1 tab PO DAILY mupirocin 2% topical BID varenicline tartrate 1 mg PO DAILY Tobacco use date assessed: 06/29/25 Dental Screening Dental Screen Date: 06/29/25 Did you have a dental visit in the last 12 months?: Yes Did you have a dental problem in the last 6 months where you did not have access to dental care?: No HPI HPI Comments History of Present Illness Details The patient is a 39-year-old female presenting for an annual wellness visit. She has a history of allergic rhinitis managed with Zyrtec and Flonase, and she is actively reducing her cigarette use with Chantix, currently smoking two cigarettes per day. She experiences anxiety, particularly at night, and uses lorazepam as needed, primarily at bedtime. She previously tried trazodone but discontinued it due to adverse effects. She is not taking it every night. Here last refill was 04/25/25. She does not require a refill at this time. The patient reports intermittent abdominal pain associated with meals, particularly fatty foods, and uses hyoscyamine as needed for relief. 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 Patient states she had labs done today. She had her last mammogram on 04/01/25. She had PAP October of 2022. [facility] Medical History (Updated 06/29/25 @ 14:04 by BELEM Naidu) Allergic rhinitis Annual physical exam Generalized anxiety disorder Intermittent abdominal pain Low vitamin D level Smoker Tobacco use disorder Surgical History History of laparoscopic cholecystectomy (03/20/23) Family History Mother No problems noted. Father No problems noted. Social History Housing: House Alcohol intake: current Patient Tobacco Use Status: Current everyday Tobacco user Cigarettes Per Day: 5 Years Smoked: 15 e-Cigarette/Vaping Use: Currently Using service: No Current occupational status: employed Cognitive needs: No Hearing needs: No Vision needs: Yes (rx glasses) Questionnaire PHQ-9 Over the last 2 weeks, how often have you been bothered by any of the following problems? 1. Little interest or pleasure in doing things: not at all 2. Feeling down, depressed, or hopeless: several days 3. Trouble falling or staying asleep, or sleeping too much: several days (trouble falling asleep sometimes) 4. Feeling tired or having little energy: not at all 5. Poor appetite or overeating: not at all 6. Feeling bad about yourself - or that you are a failure or have let yourself or your family down: not at all 7. Trouble concentrating on things, such as reading the newspaper or watching television: not at all 8. Moving or speaking so slowly that other people could have noticed. Or the opposite - being so fidgety or restless that you have been moving around a lot more than usual: not at all 9. Thoughts that you would be better off or of hurting yourself in some way: not at all Total score: 2 Source: Developed by Drs. Avtar Butterfield, Maru Weiss, Holland Mcgrath and colleagues, with an educational kim from [employer]. Thrive Questionnaire Date Thrive assessed: 06/29/25 I am a: Patient Within the past 12 months, did the food you bought not last and you didn't have the money to get more?: Never true Within the past 12 months, did you worry whether your food would run out before you got money to buy more?: Never true Do you have trouble paying for medicines?: No Do you have trouble getting transportation to medical appointments?: No Do you have trouble paying your heating and electricity bill?: No Do you have trouble taking care of your child, family member or friend?: No Do you have trouble with day-to-day activities such as bathing, preparing meals, shopping, managing finances, etc.?: No Are you currently unemployed and looking for a job?: No Are you interested in more education?: No THRIVE Score: 0 AUDIT C Alcohol Use Questionnaire (AUDIT-C) 1. How often do you have a drink containing alcohol?: Monthly or less 2. How many drinks containing alcohol do you have on a typical day when you are drinking?: 1 or 2 3. How often do you have six or more drinks on one occasion?: Less than monthly Total Score: 2 KARY-7 AMB Questionnaire KARY-7 Date KARY - 7 assessed: 06/29/25 Feeling nervous, anxious, or on edge: 0 = Not at all Not being able to stop or control worryin = Not at all Worrying too much about different things: 0 = Not at all Trouble relaxin = Not at all Being so restless that it is hard to sit still: 0 = Not at all Becoming easily annoyed or irritable: 0 = Not at all Feeling afraid as if something awful might happen: 0 = Not at all Total KARY-7 score (0-4 normal; 5-9 mild; 10-14 moderate; 15-21 severe): 0 Source: Developed by Drs. Avtar Butterfield, Maru Weiss, Holland Mcgrath and colleagues, with an educational kim from [employer]. Review of Systems Const Details: CONSTITUTIONAL No Chills No Fever No Weight loss No fatigue No generalized weakness SKIN No itching No skin lesions EYES No change in visual acuity No eye pain No red eye HEAD AND NECK No dizziness No headache No neck pain EAR/NOSE/MOUTH/THROAT No earache No sinus pain No congestion No hoarseness No sore throat RESPIRATORY No cough No shortness of breath No wheezing CARDIOVASCULAR No chest pain No dyspnea No palpitations No peripheral edema No Syncope GASTROINTESTINAL Intermittent mid abdominal pain No constipation Intermittent diarrhea No heartburn No loss of appetite No nausea No vomiting GENITOURINARY No dysuria No hematuria No urinary frequency No urinary urgency ENDOCRINE No cold intolerance No excessive hunger No excessive thirst No change in hair texture MUSCULOSKELETAL No back pain No joint pain No swelling No myalgias IMMUNOLOGICAL/ALLERGIC No congestion No itchy eyes No itchy nose No rhinitis No watery eyes HEMATOLOGIC No bleeding tendencies No bruising No fatigue LYMPHATIC No swollen lymph nodes NEUROLOGICAL No memory loss No paresthesias No focal weakness PSYCHIATRIC Anxiety No depression Intermittent sleeping problems No substance abuse No suicidal ideation Physical exam (Primary Care) Vital Signs: Last Vital Signs Temp 98.2 F 06/29/25 08:22 Pulse 83 06/29/25 08:22 BP 128/80 06/29/25 08:22 Pulse Ox 99 06/29/25 08:22 Oxygen Delivery Method Room Air 06/29/25 08:22 BMI result Body Mass Index 25.2 GENERAL Well Developed, Well Nourished, In no acute distress HEENT Head- Normocephalic, atraumatic Eyes- PERRLA, EOMI, Conjuctiva-WNL, Lids-WNL Ears- Canals- Clear, TMs- WNL Nose-Straight, Nares Patent OroPharynx-Mouth WNL, Tongue- no lesions, throat no erythema or exudate Neck- Supple, no lymphadenopathy, thyroid WNL CARDIOVASCULAR Heart- Regular rate and Rhythm without murmur Extremities- No edema RESPIRATORY Normal chest movement, clear to auscultation ABDOMINAL/GI Nondistended, soft, nontender, normal bowel sounds, no masses, no hepatosplenomegaly GENITOURINARY No CVA tenderness BACK Straight, normal ROM, nontender, DTR 2+. gait-normal MUSCULOSKELETAL No joint pain, swelling or deformity VASCULAR No JVD, Dorasalis pedis and Posterior Tibialis pulses normal and symmetrical DERMATOLOGY No rashes, no significant skin lesions, skin turgor WNL NEUROLOGICAL Cranial Nerves 11-x11 grossly intact, gait WNL, Coordination WNL, Muscle strength normal and Symmetrical, DTR normal and symmetrical, Light touch sensation intact PSYCHIATRIC Mood and affect WNL, Oriented to person, place and time Tobacco/Smoking Status: Tobacco use Status Tobacco use date assessed 06/29/25 06/29/25 08:24 Patient Tobacco Use Status Current everyday Tobacco 06/29/25 08:24 e-Cigarette/Vaping Use Currently Using 06/29/25 08:24 PHQ-9: PHQ-9 Score PHQ-9: Total score 2 06/29/25 11:40 Thrive Assessment: Date of Thrive Assessment Date Thrive assessed 06/29/25 06/29/25 08:24 Coding Level of Care Code Established Pt Est Pt Prev Care 40-64y(92188) Patient Type Established Diagnoses Annual physical exam Z00.00 Generalized anxiety disorder F41.1 Cigarette smoker motivated to quit F17.210 Intermittent abdominal pain R10.9 Non-seasonal allergic rhinitis due to pollen J30.1 Allergic rhinitis trigger: pollen Allergic rhinitis seasonality: non-seasonal Low vitamin D level R79.89 Assessment & Plan Assessment & Plan (1) Annual physical exam: Code(s): Z00.00 - Encounter for general adult medical examination without abnormal findings Category: Medical Plan: Patient states she had her labs done this am. - Mammogram completed in March, normal results - Pap smear in 2022, normal results - Colonoscopy recommended at age 43 (2) Generalized anxiety disorder: Code(s): F41.1 - Generalized anxiety disorder Category: Medical Plan: The patient uses lorazepam as needed for anxiety, primarily at bedtime, and previously tried trazodone but discontinued it due to adverse effects. Continued monitoring of anxiety symptoms and medication use is advised. Patient to follow up in 6 months or sooner if symptoms persist or worsen. (3) Cigarette smoker motivated to quit: Code(s): F17.210 - Nicotine dependence, cigarettes, uncomplicated Category: Social Hx Plan: The patient has reduced cigarette consumption from five to two per day with Chantix, which she restarted recently. Continued support and monitoring are recommended to achieve complete cessation. (4) Intermittent abdominal pain: Code(s): R10.9 - Unspecified abdominal pain Category: Medical Plan: The patient experiences intermittent abdominal pain associated with meals, particularly fatty foods, and uses hyoscyamine as needed for relief. Dietary modifications have been advised to manage symptoms, and further evaluation may be considered if symptoms persist. The patient has a history of gallbladder removal and experiences symptoms consistent with post-cholecystectomy syndrome, including abdominal discomfort after fatty meals. Dietary modifications and the use of hyoscyamine as needed are recommended to manage symptoms. Patient to follow up as needed if symptoms persist or worsen. (5) Allergic rhinitis: Code(s): J30.9 - Allergic rhinitis, unspecified Category: Medical Qualifiers: Allergic rhinitis trigger: pollen Allergic rhinitis seasonality: non- seasonal Qualified Code(s): J30.1 - Allergic rhinitis due to pollen Plan: The patient is managing allergic rhinitis with Zyrtec and Flonase, which effectively control symptoms. Patient to follow up in 6 months or sooner if symptoms persist or worsen. (6) Low vitamin D level: Code(s): R79.89 - Other specified abnormal findings of blood chemistry Category: Medical Plan: Patient had labs today. Patient will continue current medications. Will monitor. Patient will follow up in 6 months. Plan During the visit, we discussed the patient's management of allergic rhinitis with Zyrtec and Flonase, and her efforts to quit smoking using Chantix, which has reduced her cigarette consumption to two per day. We also reviewed her anxiety management with lorazepam and the previous trial of trazodone, which was discontinued due to adverse effects. The patient was advised on dietary modifications to manage abdominal pain and symptoms related to irritable bowel syndrome and post-cholecystectomy syndrome. Patient Instructions: - Continue using Zyrtec and Flonase for allergy management. - Use Chantix as directed to aid in smoking cessation. - Take lorazepam as needed for anxiety, primarily at bedtime. - Follow dietary modifications to manage abdominal pain and symptoms related to irritable bowel syndrome and post-cholecystectomy syndrome. - Schedule a follow-up appointment in six months or sooner if symptoms worsen.
== END 2025-06-29 10:56 | disposition home or self-care (01) ==
LOC: HO.HMCHD 10:09
PROVIDERS: PCP Internal Medicine; Visit Provider Physician Assistant Medical
DX: Z00.00 Encounter for general adult medical examination without abnormal findings (principal); F41.1 Generalized anxiety disorder; F17.210 Nicotine dependence, cigarettes, uncomplicated; R10.9 Unspecified abdominal pain; J30.1 Allergic rhinitis due to pollen; R79.89 Other specified abnormal findings of blood chemistry

== ENCOUNTER 2025-08-03 15:50 | Outpatient (AMB) | payer OTHER, SELFPAY ==
[2025-08-03 10:59] VITALS: BP 122/80; PULSE 93; TEMP 36.4; O2SAT 98; BMI 26.3
--- NOTE | 2025-08-03 10:59 | MHC.PC.OV ---
Vital Signs 08/03/25 10:59 Height 5 ft 4 in Weight 153 lb 8 oz BMI 26.3 BP 122/80 Blood Pressure Location Rt brachial Position Sitting Pulse 93 Pulse Source Pulse Oximeter Temp 97.6 F Temp Source Temporal Artery Scan Pulse Oximetry (%) 98 Oxygen Delivery Method Room Air Intake Visit Reasons: GI complaint Laboratory Cureman Required: No Accompanied by: Self / Same As Patient Allergies sulfamethoxazole Allergy (Verified 08/03/25 10:59) hives Medication List - Last Reconciled 09/04/25 by BELEM Naidu biotin mcg PO cetirizine (Zyrtec) 10 mg PO DAILY PRN cholecalciferol (vitamin D3) 125 mcg PO DAILY fluticasone propionate 50 mcg/actuation 1 spray intranasal DAILY hyoscyamine sulfate mg PO lorazepam 0.5 mg PO DAILY PRN multivitamin 1 tab PO DAILY mupirocin 2% topical BID ondansetron HCl 4 mg PO Q6H varenicline tartrate 1 mg PO DAILY Tobacco use date assessed: 08/03/25 Dental Screening Dental Screen Date: 08/03/25 Did you have a dental visit in the last 12 months?: Yes Did you have a dental problem in the last 6 months where you did not have access to dental care?: No HPI HPI Comments History of Present Illness Details The patient is a 39-year-old female with AR, Anxiety and smoking presenting with symptoms of acute gastroenteritis and vertigo. The gastrointestinal symptoms began on Friday with the patient experiencing diarrhea and nausea, which improved slightly by Friday morning. She reported sleeping extensively and noted an inability to concentrate at work due to worsening diarrhea, which was described as loose stools occurring approximately three times a day. The patient also experienced vertigo accompanying the gastrointestinal symptoms, which contributed to her inability to function effectively at work. She managed her symptoms with clear liquids, soups, and crackers, and reported no blood or mucus in the stool. The patient has been consuming kristofer elias and water to maintain hydration. Patient was informed and verbally consented to the use of an ambient scribe for clinic note documentation during this visit. [facility] Medical History Low vitamin D level Allergic rhinitis Intermittent abdominal pain Annual physical exam Tobacco use disorder Generalized anxiety disorder Smoker Surgical History History of laparoscopic cholecystectomy (03/20/23) Family History (Updated 08/03/25 @ 16:00 by Candi Chen MA) Mother No problems noted. Father No problems noted. Maternal Grandmother Mental health disorder Maternal Grandfather Mental health disorder Social History Housing: House Alcohol intake: current Patient Tobacco Use Status: Current everyday Tobacco user Cigarettes Per Day: 5 Years Smoked: 15 e-Cigarette/Vaping Use: Currently Using service: No Current occupational status: employed Cognitive needs: No Hearing needs: No Vision needs: Yes (rx glasses) Questionnaire PHQ-9 Over the last 2 weeks, how often have you been bothered by any of the following problems? 1. Little interest or pleasure in doing things: not at all 2. Feeling down, depressed, or hopeless: several days 3. Trouble falling or staying asleep, or sleeping too much: nearly every day 4. Feeling tired or having little energy: nearly every day 5. Poor appetite or overeating: several days (poor appetite) 6. Feeling bad about yourself - or that you are a failure or have let yourself or your family down: not at all 7. Trouble concentrating on things, such as reading the newspaper or watching television: not at all 8. Moving or speaking so slowly that other people could have noticed. Or the opposite - being so fidgety or restless that you have been moving around a lot more than usual: not at all 9. Thoughts that you would be better off or of hurting yourself in some way: not at all Total score: 8 Depression Screening Interpretation: Positive Depression Screening Follow-up: Follow-up Visit Requested Depression Screening Done: Yes Source: Developed by Drs. Avtar Butterfield, Maru Weiss, Holland Mcgrath and colleagues, with an educational kim from [employer]. Thrive Questionnaire Date Thrive assessed: 08/03/25 I am a: Patient Within the past 12 months, did the food you bought not last and you didn't have the money to get more?: Never true Within the past 12 months, did you worry whether your food would run out before you got money to buy more?: Never true Do you have trouble paying for medicines?: No Do you have trouble getting transportation to medical appointments?: No Do you have trouble paying your heating and electricity bill?: No Do you have trouble taking care of your child, family member or friend?: No Do you have trouble with day-to-day activities such as bathing, preparing meals, shopping, managing finances, etc.?: No Are you currently unemployed and looking for a job?: No Are you interested in more education?: No THRIVE Score: 0 AUDIT C Alcohol Use Questionnaire (AUDIT-C) 1. How often do you have a drink containing alcohol?: Monthly or less 2. How many drinks containing alcohol do you have on a typical day when you are drinking?: 1 or 2 3. How often do you have six or more drinks on one occasion?: Less than monthly Total Score: 2 KARY-7 AMB Questionnaire KARY-7 Date KARY - 7 assessed: 08/03/25 Feeling nervous, anxious, or on edge: 0 = Not at all Not being able to stop or control worryin = Not at all Worrying too much about different things: 0 = Not at all Trouble relaxin = Not at all Being so restless that it is hard to sit still: 0 = Not at all Becoming easily annoyed or irritable: 0 = Not at all Feeling afraid as if something awful might happen: 0 = Not at all Total KARY-7 score (0-4 normal; 5-9 mild; 10-14 moderate; 15-21 severe): 0 Source: Developed by Drs. Avtar Butterfield, Maru Weiss, Holland Mcgrath and colleagues, with an educational kim from [employer]. Review of Systems Const Details: CONSTITUTIONAL No fever HEAD/NECK Dizziness EAR/NOSE/MOUTH/THROAT Negative RESPIRATORY Negative CARDIOVASCULAR Negative GASTROINTESTINAL Reports diarrhea, nausea, and loose stools. Denies blood or mucus in stool. NEUROLOGICAL Reports vertigo. Denies headache or other neurological symptoms PSYCHIATRIC Depression and anxiety Physical exam (Primary Care) Vital Signs: Last Vital Signs Temp 97.6 F 08/03/25 10:59 Pulse 93 08/03/25 10:59 BP 122/80 08/03/25 10:59 Pulse Ox 98 08/03/25 10:59 Oxygen Delivery Method Room Air 08/03/25 10:59 BMI result Body Mass Index 26.3 GENERAL Well developed, Well nourished, in no apparent distress HEENT Head-Normocephalic Eyes- PERRLA, EOMI, Conjuctiva clear, lids WNL Ears- Canals clear, TMs WNL Mouth/Throat-No lesions, no erythema, no exudate Neck- Supple, No lymphadenopathy, thyroid WNL RESPIRATORY Normal I:E, Clear to auscultation CARDIOVASCULAR Regular, rate and rhythm, No murmurs or rubs GASTROINTESTINAL Soft, nontender, increased bowel sounds, no masses NEUROLOGICAL Gait normal PSYCHIATRIC Oriented to person, place and time Mood and affect anxious Appearance WNL Speech WNL Thought processes WNL Tobacco/Smoking Status: Tobacco use Status Tobacco use date assessed 08/03/25 08/03/25 11:00 Patient Tobacco Use Status Current everyday Tobacco 08/03/25 11:00 e-Cigarette/Vaping Use Currently Using 08/03/25 11:00 PHQ-9: PHQ-9 Score PHQ-9: Total score 8 08/03/25 16:01 Depression Screening Interpretation: Positive Depression Screening Follow-up: Follow-up Visit Requested Thrive Assessment: Date of Thrive Assessment Date Thrive assessed 08/03/25 08/03/25 11:00 Coding Level of Care Code Established Pt Est Pt Level 3 (67467) Patient Type Established Diagnoses Acute gastroenteritis K52.9 Vertigo R42 Time Spent (min) 25 Comment Time spent on H&P, Patient education and Orders. Assessment & Plan Assessment & Plan (1) Acute gastroenteritis: Code(s): K52.9 - Noninfective gastroenteritis and colitis, unspecified Plan: The patient is advised to maintain hydration with clear liquids and follow a BRAT diet to manage symptoms. Ondansetron (Zofran) is prescribed for nausea, to be taken every four to six hours as needed. The patient is advised to monitor the frequency of diarrhea and seek further medical attention if it increases significantly to prevent dehydration. (2) Vertigo: Code(s): R42 - Dizziness and giddiness Plan: The vertigo is considered secondary to the acute gastroenteritis and is expected to resolve as the primary condition improves. Plan I discussed with the patient that her symptoms are likely due to a viral gastroenteritis, which should resolve with supportive care. I recommended maintaining hydration and following a BRAT diet to manage diarrhea. Ondansetron was prescribed for nausea, and I advised her to monitor her symptoms and seek further care if they worsen. Medications: New ondansetron HCl 4 mg PO Q6H 20 tabs 0RF for nausea Patient Instructions: - Maintain hydration with clear liquids and follow a BRAT diet. - Take Ondansetron (Zofran) every four to six hours as needed for nausea. - Monitor the frequency of diarrhea and seek medical attention if it increases significantly.
== END 2025-08-03 17:22 | disposition home or self-care (01) ==
LOC: HO.HMCHD 15:50
PROVIDERS: PCP Physician Assistant Medical; Visit Provider Physician Assistant Medical
DX: K52.9 Noninfective gastroenteritis and colitis, unspecified (principal); R42 Dizziness and giddiness

== ENCOUNTER 2025-10-19 11:25 | Outpatient (AMB) | payer OTHER, SELFPAY ==
--- NOTE | 2025-10-19 08:24 | MHC.PC.OV ---
Vital Signs 10/19/25 11:30 Height 5 ft 4 in Weight 146 lb BMI 25.1 BP 122/70 Blood Pressure Location Rt brachial Position Sitting Pulse 82 Pulse Source Pulse Oximeter Temp 97.8 F Temp Source Temporal Artery Scan Pulse Oximetry (%) 98 Oxygen Delivery Method Room Air Intake Visit Reasons: head cold [place] [employer] Required: No Accompanied by: Self / Same As Patient Allergies sulfamethoxazole Allergy (Verified 08/03/25 10:59) hives Medication List - Last Reconciled 10/19/25 by BELEM Naidu amoxicillin 875 mg PO BID biotin mcg PO cetirizine (Zyrtec) 10 mg PO DAILY PRN cholecalciferol (vitamin D3) 125 mcg PO DAILY fluticasone propionate 50 mcg/actuation 1 spray intranasal DAILY fluticasone propionate 50 mcg/actuation (Flonase Allergy Relief) 2 sprays intranasal BID hyoscyamine sulfate mg PO lorazepam 0.5 mg PO DAILY PRN multivitamin 1 tab PO DAILY mupirocin 2% topical BID Tobacco use date assessed: 10/19/25 Dental Screening Dental Screen Date: 10/19/25 Did you have a dental visit in the last 12 months?: Yes Did you have a dental problem in the last 6 months where you did not have access to dental care?: No HPI HPI Comments History of Present Illness Details History of Present Illness The patient is a 39 year old female presenting with symptoms of an upper respiratory infection that began on Friday. Symptoms started with feeling cold to the bone, disorientation, and difficulty focusing at work. On Friday, she developed blocked ears, cough with phlegm, and extreme fatigue. She has experienced loss of appetite, diarrhea, and nausea since yesterday. The patient also reports a sore throat at one point, cracking in her ears, and chills but denies any fever, with her temperature remaining around 98??F. She reports that her gag reflex has been activated. She has been treating her symptoms with eebh-gfc-gaiehpn daytime flu medication, NyQuil at night, and acetaminophen on and off. Medical History: - Allergy to sulfa medications. Medications: - Csyb-wcb-jtrhxem daytime flu medication - NyQuil at night - Acetaminophen as needed Social History - Employment: The patient is employed and missed work since this past Friday. Patient was informed and verbally consented to the use of an ambient scribe for clinic note documentation during this visit. [facility] Medical History (Updated 10/19/25 @ 12:52 by BELEM Naidu) Acute sinusitis Allergic rhinitis Annual physical exam Generalized anxiety disorder Intermittent abdominal pain Low vitamin D level Smoker Tobacco use disorder Surgical History History of laparoscopic cholecystectomy (03/20/23) Family History (Updated 08/03/25 @ 16:00 by Candi Chen MA) Mother No problems noted. Father No problems noted. Maternal Grandmother Mental health disorder Maternal Grandfather Mental health disorder Social History Housing: House Alcohol intake: current Patient Tobacco Use Status: Current everyday Tobacco user Cigarettes Per Day: 5 Years Smoked: 15 Packs per year/per ci.75 e-Cigarette/Vaping Use: Currently Using service: No Current occupational status: employed Cognitive needs: No Hearing needs: No Vision needs: Yes (rx glasses) Questionnaire Thrive Questionnaire Date Thrive assessed: 08/03/25 KARY-7 AMB Questionnaire KARY-7 Date KARY - 7 assessed: 08/03/25 Source: Developed by Drs. Avtar Butterfield, Maru Weiss, Holland Mcgrath and colleagues, with an educational kim from [employer]. Review of Systems Narrative Review of Systems - General: Reports chills and extreme fatigue. - Denies fever. - HEENT: Reports blocked ears with a cracking sound, and a sore throat at one point. - Respiratory: Reports cough productive of phlegm. - Gastrointestinal: Reports nausea, diarrhea, and loss of appetite. - Neurological: Reports a history of feeling disoriented with difficulty focusing at work at the onset of symptoms. Physical exam (Primary Care) Vital Signs: Last Vital Signs Temp 97.8 F 10/19/25 11:30 Pulse 82 10/19/25 11:30 BP 122/70 10/19/25 11:30 Pulse Ox 98 10/19/25 11:30 Oxygen Delivery Method Room Air 10/19/25 11:30 BMI result Body Mass Index 25.1 GENERAL Well developed, Well nourished, in no apparent distress HEENT Head-Normocephalic Eyes- PERRLA, EOMI, Conjuctiva clear, lids WNL Ears- Canals clear, TMs WNL Mouth/Throat-No lesions, erythema, no exudate Sinus- tender to palpation Neck- Supple, No lymphadenopathy, thyroid WNL RESPIRATORY Normal I:E, Clear to auscultation CARDIOVASCULAR Regular, rate and rhythm, No murmurs or rubs GASTROINTESTINAL Soft, nontender, normal bowel sounds, no masses NEUROLOGICAL Gait normal PSYCHIATRIC Oriented to person, place and time Mood and affect WNL Appearance WNL Speech WNL Thought processes WNL Tobacco/Smoking Status: Tobacco use Status Tobacco use date assessed 10/19/25 10/19/25 08:25 Patient Tobacco Use Status Current everyday Tobacco 10/19/25 08:25 e-Cigarette/Vaping Use Currently Using 10/19/25 08:25 Thrive Assessment: Date of Thrive Assessment Date Thrive assessed 08/03/25 10/19/25 08:25 Narrative Physical Exam - Ears: A small amount of fluid noted. - Oropharynx: Postnasal drip observed. - Head: Sinuses are non-tender to palpation. - Lungs: Auscultation reveals a small amount of congestion. Coding Level of Care Code Established Pt Est Pt Level 3 (21926) Established Pt Add On Problem Visit Only Patient Type Established Diagnoses Acute sinusitis J01.90 Time Spent (min) 25 Comment Time was spent on H&P, Patient education and orders. Assessment & Plan Assessment & Plan (1) Acute sinusitis: Code(s): J01.90 - Acute sinusitis, unspecified Category: Medical Plan: Will treat with Amoxicillin and Flonase. Patient to increase fluids. Letter given for work. Patient to follow up as needed if symptoms persist or worsen. Plan Plan Patient was informed and verbally consented to the use of an ambient scribe for clinic note documentation during this visit. 1. Acute Sinusitis The patient's presentation with blocked ears, productive cough, and postnasal drip, along with physical exam findings of fluid in the ears and mild lung congestion, is consistent with an early sinus infection. For treatment, amoxicillin will be prescribed for a 10-day course, with emphasis on completing the full duration to prevent recurrence. Flonase nasal spray is also recommended, two sprays in each nostril, morning and evening, for at least 3-4 days to help open the sinuses. The patient was advised she can continue with [id number]-akmylzv decongestants as needed. Supportive care, including rest and adequate fluid intake, was encouraged. A work excuse note will be provided, allowing the patient to return to work on the upcoming Friday. Prescriptions will be sent to [facility] on [facility]. Discussion Notes I explained to the patient that her symptoms indicate an early sinus infection. I prescribed a 10-day course of amoxicillin and emphasized the importance of finishing the entire prescription because sinuses have a poor blood supply, and stopping the antibiotic too soon could lead to a recurrence of the infection. I also recommended Flonase and explained the proper technique for administration is to spray it up into the sinuses without sniffing it down the back of her throat. I advised her to continue supportive care with fluids and rest and informed her that a work note would be provided to excuse her until Friday. Patient Instructions - Take the amoxicillin for the full 10 days as prescribed, even if you start to feel better before it's finished. - Use Flonase nasal spray, two sprays in each nostril, twice a day (morning and evening) for the next 3 to 4 days. - When using Flonase, look down and spray upwards into your nostrils, but do not sniff hard. - You may continue to take ncaq-jwb-ogbalir decongestants if needed until the Flonase starts working. - Make sure to get plenty of rest and drink a lot of fluids. - Your prescriptions have been sent to the [facility] on [facility]. - A doctor's note has been provided to excuse you from work until next Friday. Medications: New amoxicillin 875 mg PO BID 20 tabs 0RF fluticasone propionate 50 mcg/actuation (Flonase Allergy Relief) administer into each nostril 2 sprays intranasal BID 16 grams 0RF
[2025-10-19 11:30] VITALS: BP 122/70; PULSE 82; TEMP 36.6; O2SAT 98; BMI 25.1
== END 2025-10-19 12:36 | disposition home or self-care (01) ==
LOC: HO.HMCHD 11:26
PROVIDERS: PCP Physician Assistant Medical; Visit Provider Physician Assistant Medical
DX: J01.90 Acute sinusitis, unspecified (principal)